=== PATIENT | male | born 1965 | race Caucasian/White ===

== ENCOUNTER 2017-06-02 16:49 | Observation (INO) | payer SELFPAY ==
[~2017-06-02] VITALS: Ht 170.2 cm; Wt 66.2 kg
--- NOTE | 2017-06-02 16:58 | NUR ---
PATIENT AMBULATED FROM EMS STRETCHER TO BED WITH STEADY GAIT AND PHYSICIAN AT BEDSIDE FOR EVALUATION
[2017-06-02] MEDS ORDERED: ALBUTEROL SUL0.083 % IN (17:31)
[2017-06-02] MEDS ORDERED: TESSALON PER100 MG PO (17:32)
[2017-06-02] MEDS ORDERED: MUCINEX600 MG PO (17:33)
[2017-06-02] MEDS ORDERED: MEDDOSEPAK PO (17:33)
[2017-06-02] MEDS ORDERED: LORATADINE10 M1 PO (17:33)
[2017-06-02] MEDS ORDERED: B-12100 MCG PO (17:34)
[2017-06-02] MEDS ORDERED: BUSPIRONE5 MG PO (17:34)
[2017-06-02] MEDS ORDERED: OMEPRAZOLE10 MG PO (17:35)
[2017-06-02] MEDS ORDERED: PRAVASTATIN SOD20 MG PO (17:35)
[2017-06-02] MEDS ORDERED: METO25TAB PO (17:35)
--- NOTE | 2017-06-02 17:35 | NUR ---
UNABLE TO VERIFY DATES AND TIME OF LAST TIME MEDS TAKEN, HAS LIST OF MEDS FROM [facility] WHERE HE WAS TREATED AND DISCHARGED.
[2017-06-02] MEDS ORDERED: ULTRAM50 M1 PO (17:36)
[2017-06-02 17:40] LABS: HEMATOCRIT 44.1 % (39.0-50.0); IMMATURE GRANULOCYTES 0.3 % (0.0-1.0); MEAN CELL VOLUME 98.9 fL CALC (80.0-100.0); MEAN CORPUSCULAR HGB 33.6 pG CALC (26.0-32.0); NEUT# 5.77 thou/uL (1.82-7.42); RED BLOOD COUNT 4.46 mill/uL (4.70-6.10); RED CELL DISTRI WIDTH 13.6 % (11.5-15.5)
[2017-06-02 17:59] LABS: ALBUMIN 4.2 g/dL (3.2-5.0); ALKALINE PHOSPHATASE 64 u/l (38-126); ANION GAP 22 (6-22 (CALC)); BILIRUBIN, TOTAL 0.6 mg/dL (0.0-1.4); BUN 17 mg/dL (9-20); BUN/CREATININE RATIO 18 (12-20 (CALC)); CARBON DIOXIDE 20 mmol/l (22-30); CHLORIDE 102 mmol/l (95-108); CPK 252 u/l (52-200); CREATININE 0.9 mg/dL (0.7-1.3); GFR > 60 ML/MIN (>=60 (CALC)); GFR FOR AFR.AMER. > 60 ML/MIN (>=60 (CALC)); POTASSIUM 3.6 mmol/l (3.5-5.1); SGOT/AST 42 u/l (17-59); SGPT/ALT 42 u/l (21-72); SODIUM 141 mmol/l (137-146); TOTAL PROTEIN 7.2 g/dL (6.3-8.2)
--- NOTE | 2017-06-02 18:10 | NUR ---
400 ML OF CLEAR YELLOW URINE OUT. URINE SAMPLE OBTAINED. IV FLUIDS INFUSING WELL. WILL CONTINUE TO MONITOR.
[2017-06-02 18:42] LABS: URINE BILIRUBIN - DIPSTICK NEGATIVE (NEGATIVE); URINE BLOOD DIPSTICK NEGATIVE (NEGATIVE); URINE COLOR YELLOW; URINE GLUCOSE - DIPSTICK NEGATIVE (NEGATIVE); URINE KETONE NEGATIVE (NEGATIVE); URINE LEUK ESTERASE NEGATIVE (NEGATIVE); URINE NITRITE - DIPSTICK NEGATIVE (Negative); URINE PH 5.5 (4.5-8.0); URINE PROTEIN - DIPSTICK NEGATIVE (NEG-TRACE); URINE SPECIFIC GRAVITY 1.015; URINE UROBILINOGEN - DIPSTICK 0.2 E.U./dL (0.2)
[2017-06-02 18:46] LABS: BARBITURATES NEGATIVE (NEGATIVE); COCAINE NEGATIVE (NEGATIVE); METHADONE NEGATIVE (NEGATIVE); TETRAHYDROCANNABIONOL NEGATIVE (NEGATIVE); TRICYLIC ANTIDEPRESSANTS NEGATIVE (NEGATIVE); URINE CLARITY CLEAR
[2017-06-02 18:47] LABS: OXCYCODONE NEGATIVE (NEGATIVE)
--- NOTE | 2017-06-02 18:54 | NUR ---
REPORT GIVEN TO WATSON COSTELLO. CARE RELINQUISHED.
--- NOTE | 2017-06-02 19:25 | NUR ---
MD IN ROOM TO DISCUSS CLINICAL FINDINGS, PT. VERBALIZED UNDERSTANDING.
--- NOTE | 2017-06-02 19:41 | NUR ---
Admission Note Report Given to: PETROS CHAUDHARI Transported by: Wheelchair X Stretcher Transported with: X Nurse Transporter X Patent IV O2 X Equipment Maintenance Engineer
--- NOTE | 2017-06-02 19:56 | NUR ---
PT. TAKEN TO [facility] VIA STRETCHER, NO C/O.
[2017-06-02 20:00] VITALS: BP 125/86
--- NOTE | 2017-06-02 20:03 | NUR ---
PT ARRIVED TO UNIT VIA STRETCHER WITH ER STAFF. AMBULATED TO BED INDEPENDENTLY. C/O MILD PAIN TO NECK, LLQ OF ABDOMEN, AND FEET. RESPIRATIONS EVEN AND UNLABORED ON ROOM AIR. PT HAS STRONG ODOR UPON ARRIVAL AND HAD UNOPENED BLISTERS TO HIS FEET. FEET SOAKED IN WARM WATER AND SHOWER OFFERED. ORIENTED TO ROOM AND CALL LIGHT SYSTEM. PLAN OF CARE DISCUSSED. PT ENCOURAGED TO VERBALIZE CONCERNS. STATES UNDERSTANDING. SAFETY MEASURES IN PLACE. CALL LIGHT WITHIN REACH.
--- NOTE | 2017-06-02 21:30 | NUR ---
PT NOW RESTING IN BED WITH NO REQUESTS OR COMPLAINTS. HE DECLINED HIS SCHEDULED BREATHING TREATMENT STATING THAT HE IS NOT SOB AND DOES NOT NEED IT AT THIS TIME. HIS VENTOLIN AND ATROVENT INHALERS COLLECTED AND PREPARED FOR PHARMACY.
--- NOTE | 2017-06-03 | NUR ---
PT ASLEEP AT THIS TIME WITH NO SIGNS OF DISTRESS NOTED. RESPIRATIONS EVEN AND UNLABORED. USING URINAL AT BEDSIDE AND CALL LIGHT PRN FOR ASSISTANCE. IV FLUIDS INFUSING WITHOUT DIFFICULTY; IV SITE APPEARS HEALTHY. SAFETY MEASURES IN PLACE. CALL LIGHT WITHIN REACH.
[2017-06-03 00:08] VITALS: BP 119/78
[2017-06-03 04:24] VITALS: BP 104/69
--- NOTE | 2017-06-03 04:31 | NUR ---
PT RESTING IN BED WITH EYES CLOSED; AWAKENS TO VERBAL STIMULI. VS STABLE. PT HAS NO REQUESTS OR COMPLAINTS AT THIS TIME. NO ACUTE CHANGES IN CONDITION THROUGHOUT THE NIGHT. SAFETY MEASURES IN PLACE. CALL LIGHT WITHIN REACH.
--- NOTE | 2017-06-03 07:10 | NUR ---
BEDSIDE REPORT RECEIVED BY MANIE. PT IS RESTING IN BED WITH NO S/S OF DISTRESS NOTED. PT DENIES NEEDS AT THIS TIME. CALL LIGHT IN REACH.
[2017-06-03 07:29] VITALS: BP 118/80
--- NOTE | 2017-06-03 08:00 | NUR ---
ASSESSMENT DONE AND TELE IN PLACE. RESPS EVEN AND UNLABORED. PT DENIES PAIN AT THIS TIME. #18 LFA THAT APPEARS HEALTHY. ORIENTED PT TO CALL LIGHT AND SAFETY PRECAUTIONS REINFORCED.
[2017-06-03 12:12] VITALS: BP 99/68
--- NOTE | 2017-06-03 12:16 | NUR ---
PT IS RESTING IN BED WITH NO S/S OF DISTRESS NOTED. PT DENIES NEEDS AT THIS TIME.
[2017-06-03 12:57] LABS: HEMATOCRIT 41.4 % (39.0-50.0); HEMOGLOBIN 14.2 g/dl (14.0-18.0); IMMATURE GRANULOCYTES 0.5 % (0.0-1.0); MEAN CELL VOLUME 97.2 fL CALC (80.0-100.0); MEAN CORPUSCULAR HGB 33.3 pG CALC (26.0-32.0); MEAN CORPUSCULAR HGB CONC 34.3 g/L CALC (32.0-36.0); NEUT# 10.22 thou/uL (1.82-7.42); RED BLOOD COUNT 4.26 mill/uL (4.70-6.10); RED CELL DISTRI WIDTH 13.3 % (11.5-15.5)
[2017-06-03 13:03] LABS: ALBUMIN 3.5 g/dL (3.2-5.0); ALKALINE PHOSPHATASE 81 u/l (38-126); BILIRUBIN, TOTAL 0.7 mg/dL (0.0-1.4); BUN 15 mg/dL (9-20); BUN/CREATININE RATIO 19 (12-20 (CALC)); CARBON DIOXIDE 24 mmol/l (22-30); CHLORIDE 106 mmol/l (95-108); CPK 98 u/l (52-200); CREATININE 0.8 mg/dL (0.7-1.3); GFR > 60 ML/MIN (>=60 (CALC)); GFR FOR AFR.AMER. > 60 ML/MIN (>=60 (CALC)); SGOT/AST 31 u/l (17-59); SGPT/ALT 40 u/l (21-72); SODIUM 140 mmol/l (137-146); TOTAL PROTEIN 6.1 g/dL (6.3-8.2)
[2017-06-03 13:17] LABS: ANION GAP 15 (6-22 (CALC)); POTASSIUM 4.5 mmol/l (3.5-5.1)
[2017-06-03 15:44] VITALS: BP 117/75
--- NOTE | 2017-06-03 16:03 | NUR ---
PT IS RESTING IN BED. COFFEE GIVEN PER PT REQUEST AND PT DENIES NEEDS AT THIS TIME. CALL LIGHT IN REACH. NO S/S OF DISTRESS NOTED ON PT.
[2017-06-03 19:06] VITALS: BP 113/75
--- NOTE | 2017-06-03 19:15 | NUR ---
REPORT RECIEVED; PT RESTING IN SEMI- FOWLERS POSITION. IV PATENT; NO REDNESS OR EDEMA NOTED. PT DENIES PAIN OR DISCOMFORT. PLAN OF CARE DISCUSSED. SAFETY PRECAUTIONS REINFORCED. FREQUENT ROUNDS MADE. CALL LIGHT WITHIN REACH.
--- NOTE | 2017-06-03 19:28 | NUR ---
PT RESTING IN BED WATCHING TV. RESP EVEN AND UNLABORED; NO DISTRESS NOTED. LUNGS CLEAR BILAT. TELE IN PLACE. ABD SOFT; ACTIVE BOWEL SOUND NOTED. PEDAL PULSES PALPATED BILAT. IV LFA PATENT; NO REDNESS OR EDEMA NOTED. SAFETY PRECAUTIONS REINFORCED. CALL LIGHT WITHIN REACH.
[2017-06-04] VITALS (7 sets, daily range): BP systolic 16–128; BP diastolic 73–82
--- NOTE | 2017-06-04 00:10 | NUR ---
RESP EVEN AND UNLABORED; NO DISTRESS NOTED. TELE IN PLACE. IV PATENT; NO REDNESS OR EDEMA NOTED. PT DENIES PAIN. CALL LIGHT WITHIN REACH.
--- NOTE | 2017-06-04 04:02 | NUR ---
RESP EVEN AND UNLABORED; ASSESSMENT UNCHANGED. TELE IN PLACE. CALL LIGHT WITHIN REACH.
--- NOTE | 2017-06-04 08:21 | NUR ---
PT RESTING IN BED. ASSESSMENT COMPLETED. VSS. POC DISCUSSED WITH PT. PT VERBALIZES UNDERSTANDING. NO C/O AT THIS TIME. WILL CONTINUE TO MONITOR. CALL LIGHT IN REACH.
--- NOTE | 2017-06-04 11:45 | NUR ---
PT RESTING IN BED WITH EYES CLOSED. NO DISTRESS NOTED. WILL CONTINUE TO MONITOR. CALL LIGHT IN REACH.
--- NOTE | 2017-06-04 12:15 | NUR ---
PT HAS BEEN RELAXING IN BED WITH NO DISTRESS NTOED. IV SITE IS FREE FROM REDNESS OR EDEMA. CONTINUE TO OSBERVE AND MONITOR.
--- NOTE | 2017-06-04 16:15 | NUR ---
PT IS RELAXING IN BED WITH NO DISTRESS NTOED. IV SITE IS ANDREWS FROM REDNESS OR EDEMA.
[2017-06-04 16:31] LABS: HEMATOCRIT 42.8 % (39.0-50.0); HEMOGLOBIN 14.6 g/dl (14.0-18.0); IMMATURE GRANULOCYTES 0.2 % (0.0-1.0); MEAN CELL VOLUME 97.9 fL CALC (80.0-100.0); MEAN CORPUSCULAR HGB 33.4 pG CALC (26.0-32.0); MEAN CORPUSCULAR HGB CONC 34.1 g/L CALC (32.0-36.0); NEUT# 4.64 thou/uL (1.82-7.42); RED BLOOD COUNT 4.37 mill/uL (4.70-6.10); RED CELL DISTRI WIDTH 13.2 % (11.5-15.5)
[2017-06-04 17:16] LABS: ALBUMIN 3.6 g/dL (3.2-5.0); ALKALINE PHOSPHATASE 64 u/l (38-126); ANION GAP 15 (6-22 (CALC)); BILIRUBIN, TOTAL 0.4 mg/dL (0.0-1.4); BUN 16 mg/dL (9-20); BUN/CREATININE RATIO 18 (12-20 (CALC)); CARBON DIOXIDE 26 mmol/l (22-30); CHLORIDE 104 mmol/l (95-108); CPK 69 u/l (52-200); CREATININE 0.9 mg/dL (0.7-1.3); GFR > 60 ML/MIN (>=60 (CALC)); GFR FOR AFR.AMER. > 60 ML/MIN (>=60 (CALC)); POTASSIUM 4.5 mmol/l (3.5-5.1); SGOT/AST 32 u/l (17-59); SGPT/ALT 49 u/l (21-72); SODIUM 141 mmol/l (137-146); TOTAL PROTEIN 6.3 g/dL (6.3-8.2)
--- NOTE | 2017-06-04 18:30 | NUR ---
IV SITE IN LW BECAME A LITTLE PAINFUL AND RED. CHANGED THE SITE TO # 20 IN RFA BY VERONIQUE Leahy RN. PT TOLERATED WELL. GAVE REPORT AT 1915 TO ONCOMING SHIFT
--- NOTE | 2017-06-04 19:59 | NUR ---
BEDSIDE REPORT RECEIVED FROM CAROLINA COOPER. PT RESTING IN BED SUPINE WATCHING TV. DENIES PAIN AT THIS TIME. RESPIRATIONS EVEN AND UNLABORED ON ROOM AIR. IV FLUIDS INITIATED AND INFUSING WITHOUT DIFFICUTLY; IV SITE APPEARS HEALTHY. PLAN OF CARE REVIEWED. PT ENCOURAGED TO VERBALIZE CONCERNS. STATES UNDERSTANDING. REQUESTS COFFEE. SAFETY MEASURES IN PLACE. CALL LIGHT WITHIN REACH.
--- NOTE | 2017-06-04 23:59 | NUR ---
PT ASLEEP IN BED ON LEFT SIDE; AWAKENS SPONTANEOUSLY. DENIES PAIN, HOWEVER, HE STATES THAT HE HAS SOME MIDSTERNAL SENSATION THAT IS DIFFICULT TO DESCRIBE. SKIN AT THIS TIME IS WARM AND MOIST. VS ARE STABLE; SR 62 ON TELEMETRY. PT INSTRUCTED TO NOTIFY NURSE OF ANY CHANGES OR WORSENING IN HIS DISCOMFORT. NO OTHER REQUESTS OR COMPLAINTS AT THIS TIME. IV FLUIDS INFUSING WITHOUT DIFFICULTY; SAFETY MEASURES IN PLACE. CALL LIGHT WITHIN REACH.
[2017-06-05 04:30] VITALS: BP 108/77
--- NOTE | 2017-06-05 04:30 | NUR ---
ORTHOSTATIC HYPOTENSION VS COMPLETED AND NEGATIVE. PT HAD NO ACUTE CHANGES IN CONDITION THROUGHOUT THE NIGHT. SAFETY MEASURES IN PLACE. CALL LIGHT WITHIN REACH.
[2017-06-05 04:35] VITALS: BP 116/89
[2017-06-05 04:40] VITALS: BP 118/93
[2017-06-05 06:01] LABS: ALBUMIN 3.3 g/dL (3.2-5.0); ALKALINE PHOSPHATASE 58 u/l (38-126); ANION GAP 13 (6-22 (CALC)); BILIRUBIN, TOTAL 0.4 mg/dL (0.0-1.4); BUN 12 mg/dL (9-20); BUN/CREATININE RATIO 14 (12-20 (CALC)); CARBON DIOXIDE 28 mmol/l (22-30); CHLORIDE 105 mmol/l (95-108); CPK 46 u/l (52-200); CREATININE 0.9 mg/dL (0.7-1.3); GFR > 60 ML/MIN (>=60 (CALC)); GFR FOR AFR.AMER. > 60 ML/MIN (>=60 (CALC)); POTASSIUM 4.3 mmol/l (3.5-5.1); SGOT/AST 27 u/l (17-59); SGPT/ALT 42 u/l (21-72); SODIUM 142 mmol/l (137-146)
--- NOTE | 2017-06-05 07:10 | NUR ---
REPORT RECEIVED FROM WATSON MORRELL;PT RESTING IN SUPINE POSITION;INTRODUCED PT TO SELF AND POC DISCUSSED;IV SITE PATENT;TELE MONITOR IN PLACE;ALL SAFETY PRECAUTIONS REINFORCED;PT DENIES ANY NEEDS AT THIS TIME AND IS ENCOURAGED TO CALL FOR ASSISTANCE IF NEEDED;CALL LIGHT IN REACH;WILL CONTINUE TO MONITOR
[2017-06-05 08:04] VITALS: BP 122/87
--- NOTE | 2017-06-05 08:05 | NUR ---
PT RESTING ON BEDSIDE EATING BREAKFAST;VS OBTAINED AND ASSESSMENT COMPLETED;RESPIRATIONS EVEN AND UNLABORED ON RA,CLEAR LUNG SOUNDS NOTED;ABDOMEN SOFT ON PALPATION AND ACTIVE IN ALL 4 QUADRANTS;STRONG PEDAL PULSES;TELE MONITOR IN PLACE;#20G TO RIGHT FOREARM INFUSING D5 1/2 NS @ 75ML/HR,SITE APPEARS HEALTHY;400CC OF CLEAR/YELLOW URINE EMPTIED FROM URINAL;PT STATES "THE DOCTOR SAID HE WANTED TO COLLECT A SAMPLE OF MY SPIT",PT HAD COUGHED UP FLEM AND SPIT IT ON THE NIGHTSTAND,COLLECTION CUP PROVIDED FOR FURTHER SPECIMENS;SAFETY PRECAUTIONS REINFORCED;CALL LIGHT IN REACH;WILL CONTINUE TO MONITOR
[2017-06-05 10:55] VITALS: BP 111/76
--- NOTE | 2017-06-05 11:15 | NUR ---
HUBERT TILLMAN,Z [employer] MAINFRAME SYSTEMS PROGRAMMER AT BEDSIDE
--- NOTE | 2017-06-05 11:25 | NUR ---
PT RESTING AT BEDSIDE;PT STATES "I GET TO GET OUT OF HERE SOON!";IV SITE PATENT AND TELE MONITOR IN PLACE;PT DENIES ANY OTHER NEEDS AT THIS TIME;ENCOURAGED TO CALL FOR ASSISTANCE IF NEEDED;CALL LIGHT IN REACH;WILL CONTINUE TO MONITOR
--- NOTE | 2017-06-05 12:20 | NUR ---
IV SITE REMOVED WITH CATHETER INTACT;PT TO BE D/C'D AROUND 1700 DUE TO TRANSPORTATION;PT VERBALIZES UNDERSTANDING;WILL CONTINUE TO MONITOR
--- NOTE | 2017-06-05 12:46 | NUR ---
PT AMBULATING THE HALLS AT THIS TIME
--- NOTE | 2017-06-05 15:15 | NUR ---
PT RESTING COMFORTABLY IN SEMI FOWLERS POSITION;DENIES ANY PAIN OR NEEDS;ENCOURAGED PO FLUIDS AND TO CALL FOR ASSISTANCE IF NEEDED;URINAL EMPTIED OF 300CC OF CLEAR/YELLOW URINE;BED IN THE LOWEST POSITION WITH CALL LIGHT IN REACH;WILL CONTINUE TO MONITOR
--- NOTE | 2017-06-05 16:30 | NUR ---
PT WILL BE LEAVING VIA [facility] TO [place] AND THEN TAKING A [place] HOUND TO [place];FUNDS WERE PROVIDED BY THE [facility] FOR TRANSPORT
--- NOTE | 2017-06-05 16:50 | NUR ---
Discharge instructions given. Patient verbalizes understanding of same. Discharged in stable condition via [facility] to Home with staff. All belongings sent with pt.
== END 2017-06-05 16:54 | disposition home or self-care (01) | DRG 923 ==
LOC: ED 16:49 → ED-I 19:00 → ED 19:29 → MS2 19:30
PROVIDERS: Family Medicine; Hospitalist; Nurse Practitioner Family; ADMIT Internal Medicine; ATTEND Internal Medicine
DX: T67.0XXA Heatstroke and sunstroke, initial encounter (principal); E78.5 Hyperlipidemia, unspecified; F32.9 Major depressive disorder, single episode, unspecified; I10 Essential (primary) hypertension; I25.10 Atherosclerotic heart disease of native coronary artery without angina pectoris; J44.9 Chronic obstructive pulmonary disease, unspecified; L55.0 Sunburn of first degree; S00.03XA Contusion of scalp, initial encounter; W19.XXXA Unspecified fall, initial encounter; X30.XXXA Exposure to excessive natural heat, initial encounter; Z87.891 Personal history of nicotine dependence; Z95.3 Presence of xenogenic heart valve
CPT/HCPCS: G0378; Q9967